=== PATIENT | female | born 1960 | race Caucasian/White ===

== ENCOUNTER 2019-06-12 19:19 | Observation (INO) ==
[2019-06-12] MEDS ORDERED: SODIUM CHLORIDE 0.9% 1000ML 1,000 ML IV ONE ×2 (19:45→21:56)
--- NOTE | 2019-06-12 19:58 | Emergency Department Note ---
History of Present Illness General Chief complaint: Shortness of Breath/Dyspnea Stated complaint: COUGH,FEVER,SOB Time Seen by Provider: 06/12/19 19:31 History of Present Illness Maximum Pain Intensity: 5 The patient is a 58-year-old female who presented to the emergency department for an evaluation of cough and fever. The patient started having cough and difficulty breathing approximately 2 weeks ago. She also complains of pain between her shoulder blades which is worsened with coughing as well as movement. The patient took Tylenol for an elevated temperature approximately 7 PM this evening. She states that she has had no nausea or vomiting. She denies having any recent travel or exposure to anyone with coronavirus. The patient has not been seen by her primary care physician for the symptoms. She denies having any lower extremity swelling or pain. The patient has had pneumonia in the past and states that her symptoms are similar. The patient denies having any sore throat or neck stiffness. Home Medications Home Medications Medication Instructions Recorded Confirmed Type biotin 1 mg capsule 1 mg PO DAILY 10/04/18 06/12/19 History multivitamin 1 tab PO QAM 10/04/18 06/12/19 History psyllium husk 0.52 gram capsule 0.52 gm PO QAM cap 10/04/18 06/12/19 History cyclobenzaprine 5 mg tablet 5 - 10 mg PO TID PRN #30 tab 10/25/18 06/12/19 Rx duloxetine 60 mg capsule,delayed 60 mg PO QAM #90 cap 03/30/19 06/12/19 Rx release lisinopril 10 mg tablet 10 mg PO QAM #90 tab 03/30/19 06/12/19 Rx lorazepam 0.5 mg tablet 0.5 mg PO HS PRN #90 tab 03/30/19 06/12/19 Rx ropinirole 4 mg tablet 4 mg PO HS #90 tab 03/30/19 06/12/19 Rx pregabalin 150 mg capsule 150 mg PO BID #180 cap 06/05/19 06/12/19 Rx tramadol 50 mg PO Q6 PRN 06/12/19 06/12/19 History albuterol sulfate 1 puffs INH 6XD PRN #8 gm 06/13/19 Rx Allergies Allergy/AdvReac Type Severity Reaction Status Date / Time NSAIDS (Non-Steroidal Allergy Mild HOT, RASH Verified 06/12/19 20:21 Anti-Inflamma Past Med/Surg History Medical History Anxiety Bilateral shoulder pain Cervical radiculopathy (Acute) Depression Fibromyalgia Hyperlipidemia (Acute) Hypertension Impaired fasting glucose (Acute) Osteoarthritis Surgical History H/O wisdom tooth extraction History of bilateral tubal ligation History of cholecystectomy History of colonoscopy History of esophagogastroduodenoscopy (EGD) History of left oophorectomy Family History Mother History of anesthesia reaction difficulty waking Family history of diabetes mellitus Myocardial infarction Kidney disease Cardiac disorder Brother Family hx colonic polyps Unknown Cardiac disorder Hypertension Denies family history of Ovarian cancer Prostate cancer Breast cancer Colorectal cancer Social History Preferred Language: Togolese Communication Ability: Effective 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 and A total of 10 systems reviewed and were otherwise negative Physical Exam Vital Signs Vital Signs - 24 hr 06/12/19 19:19 06/12/19 19:22 06/12/19 19:45 Temperature 39.6 C H Temperature Source Oral Pulse Rate 133 H Pulse Rate from SpO2 Sensor Respiratory Rate 24 25 H Respiratory Effort / Characteristics Non-Labored Spontaneous Respiratory Depth Normal Respiratory Pattern Regular Blood Pressure 166/97 H Blood Pressure Mean 120 Pulse Oximetry 91 98 91 Oxygen Delivery Method Room Air Room Air Room Air Sepsis Recent Fever Within 48 Hours Yes Sepsis Action Taken by Nursing No Action Required 06/12/19 20:30 06/12/19 20:45 06/12/19 21:00 Temperature Temperature Source Pulse Rate 108 H 112 H Pulse Rate from SpO2 Sensor 109 H 112 H Respiratory Rate 19 20 Respiratory Effort / Characteristics Respiratory Depth Respiratory Pattern Blood Pressure 167/92 H 169/86 H 169/77 H Blood Pressure Mean 103 106 111 Pulse Oximetry 92 90 92 Oxygen Delivery Method Room Air Room Air Room Air Sepsis Recent Fever Within 48 Hours Sepsis Action Taken by Nursing 06/12/19 21:15 06/12/19 21:30 06/12/19 21:45 Temperature Temperature Source Pulse Rate 110 H 107 H 114 H Pulse Rate from SpO2 Sensor 110 H 110 H 114 H Respiratory Rate 20 15 20 Respiratory Effort / Characteristics Respiratory Depth Respiratory Pattern Blood Pressure 185/84 H 171/85 H 156/92 H Blood Pressure Mean 110 136 116 Pulse Oximetry 92 90 91 Oxygen Delivery Method Room Air Room Air Room Air Sepsis Recent Fever Within 48 Hours Sepsis Action Taken by Nursing 06/12/19 22:00 Temperature Temperature Source Pulse Rate 114 H Pulse Rate from SpO2 Sensor 114 H Respiratory Rate 21 Respiratory Effort / Characteristics Respiratory Depth Respiratory Pattern Blood Pressure 170/92 H Blood Pressure Mean 130 Pulse Oximetry 93 Oxygen Delivery Method Room Air Sepsis Recent Fever Within 48 Hours Sepsis Action Taken by Nursing GENERAL: Patient is awake alert in no acute distress patient is resting comfortably and showing no signs of anxiety EYES: The conjunctivae are clear. The pupils are round and reactive. EARS, NOSE, MOUTH AND THROAT: The nose is without any evidence of any deformity. Mucous membranes are moist. Tongue is midline. NECK: The neck is nontender and supple. RESPIRATORY: Diminished breath sounds are noted throughout. There was faint wheezing in both upper lung bacon. The patient has mild conversational dyspnea. CARDIOVASCULAR: Tachycardic rate with regular rhythm was noted. There was no definite murmur. GASTROINTESTINAL: The abdomen is soft. Abdomen is nontender. MUSCULOSKELETAL/EXTREMITIES: There is no evidence of gross deformity full range of motion is noted in the hips and shoulders. SKIN: There is no obvious evidence of any rash. There are no petechiae, pallor or cyanosis noted. No calf tenderness was elicited. NEUROLOGIC: Patient is awake alert and oriented x3 strength is symmetric patellar reflexes are 2+ bilaterally Course Course 7: I discussed this case with Dr. Garcias. He is agreed to evaluate the patient in the emergency department for further management and disposition. Administered Medications Discontinued Medications Albuterol (Duoneb) 3 ml NEB NOW STA Stop: 06/12/19 21:57 Last Admin: 06/12/19 22:36 Dose: 3 ml Documented by: [id number] Albuterol (Duoneb) 3 ml NEB QIDR [facility] Stop: 07/13/19 06:59 Last Admin: 06/13/19 07:32 Dose: 3 ml Documented by: [id number] Duloxetine HCl (Cymbalta) 60 mg PO QAM [facility] Stop: 07/13/19 08:59 Last Admin: 06/13/19 08:49 Dose: 60 mg Documented by: [id number] Guaifenesin (Mucinex) 1,200 mg PO Q12 [facility] Stop: 07/13/19 08:59 Last Admin: 06/13/19 08:47 Dose: 1,200 mg Documented by: [id number] Sodium Chloride (Nss 1000ml) 1,000 mls @ 999 mls/hr IV .Q1H1M ONE Stop: 06/12/19 20:45 Last Infusion: 06/12/19 21:28 Dose: 0 mls/hr Documented by: [id number] Admin: 06/12/19 20:25 Dose: 999 mls/hr Documented by: [id number] Magnesium Sulfate/Dextrose (Magnesium Sulfate / D5w) 1 gm in 100 mls @ 100 mls/hr IV Q1H [facility] Stop: 06/12/19 23:14 Last Infusion: 06/12/19 23:15 Dose: 0 mls/hr Documented by: [id number] Admin: 06/12/19 22:35 Dose: 200 mls/hr Documented by: [id number] Infusion: 06/12/19 22:35 Dose: 200 mls/hr Documented by: [id number] Admin: 06/12/19 21:55 Dose: 100 mls/hr Documented by: [id number] Sodium Chloride (Nss 1000ml) 1,000 mls @ 999 mls/hr IV .Q1H1 ONE Stop: 06/12/19 22:56 Last Infusion: 06/13/19 00:33 Dose: 0 mls/hr Documented by: [id number] Admin: 06/12/19 22:35 Dose: 999 mls/hr Documented by: [id number] Ceftriaxone Sodium 2,000 mg/ (Dextrose) 70 mls @ 100 mls/hr IV Q24H [facility]; Protocol Stop: 06/20/19 00:59 Last Infusion: 06/13/19 02:45 Dose: 0 mls/hr Documented by: [id number] Admin: 06/13/19 01:42 Dose: 100 mls/hr Documented by: [id number] Levofloxacin/Dextrose (Levaquin/D5w) 500 mg in 100 mls @ 100 mls/hr IV Q24H [facility] Stop: 06/20/19 01:59 Last Infusion: 06/13/19 02:45 Dose: 0 mls/hr Documented by: [id number] Admin: 06/13/19 01:42 Dose: 100 mls/hr Documented by: [id number] Methylprednisolone 40 mg/ (Syringe) 0.64 mls @ 1.5 mls/min IV Q8H [facility] Stop: 07/13/19 00:59 Last Admin: 06/13/19 08:48 Dose: 1.5 mls/min Documented by: [id number] Admin: 06/13/19 01:41 Dose: 1.5 mls/min Documented by: [id number] Potassium Chloride/Sodium Chloride (Normal Saline W/20 Meq Kcl) 20 meq in 1,000 mls @ 100 mls/hr IV .Q10H [facility] Stop: 07/13/19 04:44 Last Admin: 06/13/19 04:55 Dose: 100 mls/hr Documented by: [id number] Lisinopril (Zestril) 10 mg PO QAM [facility] Stop: 07/13/19 11:14 Last Admin: 06/13/19 11:38 Dose: 10 mg Documented by: [id number] Multivitamins (Multivitamin Tab) 1 tab PO QAM [facility] Stop: 07/13/19 08:59 Last Admin: 06/13/19 08:49 Dose: 1 tab Documented by: [id number] Pregabalin (Lyrica) 150 mg PO BID [facility] Stop: 07/13/19 00:59 Last Admin: 06/13/19 08:49 Dose: 150 mg Documented by: [id number] Admin: 06/13/19 01:41 Dose: 150 mg Documented by: [id number] Psyllium Hydrophilic Mucilloid (Metamucil) 1 pkt PO QAM [facility] Stop: 07/13/19 08:59 Last Admin: 06/13/19 08:46 Dose: Not Given Documented by: [id number] Medical Decision Making Differential Diagnosis Viral syndrome, otitis, pharyngitis, pneumonia, influenza, meningitis, urinary tract infection, sepsis, bacteremia, as well as other pathologies. Medical Records Attestation: I reviewed the patient's medical records. Home Medications Current Medication List: was personally reviewed by me Laboratory Data Attestation: I reviewed the patient's lab results. Result diagrams: 06/13/19 05:10 06/13/19 05:10 Lab Results 06/12/19 06/12/19 06/12/19 Range/Units 20:25 20:25 20:26 WBC 13.55 H (4.8-10.8) K/uL RBC 4.44 (4.2-5.4) M/uL Hgb 12.0 (12.0-16.0) g/dL Hct 36.3 L (37-47) % MCV 81.8 (80-100) fL MCH 27.0 (25-34) pg MCHC 33.1 (32-36) g/dL RDW Std Deviation 44.9 (36.4-46.3) fL RDW Coeff of Stepan 15.2 H (11.5-14.5) % Plt Count 193 (130-400) K/uL MPV 9.2 (7.4-10.4) fL Immature Gran % (Auto) 0.5 % Neut % (Auto) 84.0 % Lymph % (Auto) 7.7 % Dyer % (Auto) 6.1 % Eos % (Auto) 1.6 % Baso % (Auto) 0.1 % Immature Gran # (Auto) 0.07 H (0.00-0.02) K/uL Neut # (Auto) 11.36 H (1.4-6.5) K/uL Lymph # (Auto) 1.05 L (1.2-3.4) K/uL Dyer # (Auto) 0.83 H (0.11-0.59) K/uL Eos # (Auto) 0.22 (0-0.5) K/uL Baso # (Auto) 0.02 (0-0.2) K/uL PT (9.0-12.0) Seconds INR (0.9-1.1) APTT (21.0-31.0) Seconds PTT Ratio Sodium (136-145) mmol/L Potassium (3.5-5.1) mmol/L Chloride (98-107) mmol/L Carbon Dioxide (21-32) mmol/L Anion Gap (3-11) BUN (7-18) mg/dl Creatinine (0.6-1.2) mg/dl Est Cr Clr Drug Dosing ml/min Est GFR ( Amer) Est GFR (Non-Af Amer) BUN/Creatinine Ratio (10-20) Glucose (70-99) mg/dl Lactate (0.4-2.0) mmol/L Calcium (8.5-10.1) mg/dl Magnesium (1.8-2.4) mg/dl Total Bilirubin (0.2-1) mg/dl AST (15-37) U/L ALT (12-78) U/L Alkaline Phosphatase (45-117) U/L Troponin I (0-0.045) ng/ml Total Protein (6.4-8.2) gm/dl Albumin (3.4-5.0) gm/dl Globulin (2.5-4.0) gm/dl Albumin/Globulin Ratio (0.9-2) Procalcitonin (0-0.5) ng/ml Adenovirus (PCR) Not Detected (NotDetected) B. pertussis DNA (PCR) Not Detected (NotDetected) B.parapertussis DNA PCR Not Detected (NotDetected) C. pneumoniae DNA (PCR) Not Detected (NotDetected) Coronavirus OC43 (PCR) Not Detected (NotDetected) Coronavirus HKU1 (PCR) Not Detected (NotDetected) Coronavirus 229E (PCR) Not Detected (NotDetected) Coronavirus NL63 (PCR) DETECTED A* (NotDetected) Human Metapneumovir PCR Not Detected (NotDetected) Influenza Type A (PCR) Neg for Influ A Not Detected (Neg) Influenza Type B (PCR) Neg for Influ B Not Detected (Neg) M. pneumoniae (PCR) Not Detected (NotDetected) Parainfluenza 1 (PCR) Not Detected (NotDetected) Parainfluenza 2 (PCR) Not Detected (NotDetected) Parainfluenza 3 (PCR) Not Detected (NotDetected) Parainfluenza 4 (PCR) Not Detected (NotDetected) RSV (PCR) Not Detected (NotDetected) Entero/Rhino (PCR) Not Detected (NotDetected) 06/12/19 06/12/19 06/12/19 Range/Units 20:26 20:26 20:26 WBC (4.8-10.8) K/uL RBC (4.2-5.4) M/uL Hgb (12.0-16.0) g/dL Hct (37-47) % MCV (80-100) fL MCH (25-34) pg MCHC (32-36) g/dL RDW Std Deviation (36.4-46.3) fL RDW Coeff of Stepan (11.5-14.5) % Plt Count (130-400) K/uL MPV (7.4-10.4) fL Immature Gran % (Auto) % Neut % (Auto) % Lymph % (Auto) % Dyer % (Auto) % Eos % (Auto) % Baso % (Auto) % Immature Gran # (Auto) (0.00-0.02) K/uL Neut # (Auto) (1.4-6.5) K/uL Lymph # (Auto) (1.2-3.4) K/uL Dyer # (Auto) (0.11-0.59) K/uL Eos # (Auto) (0-0.5) K/uL Baso # (Auto) (0-0.2) K/uL PT 10.3 (9.0-12.0) Seconds INR 1.0 (0.9-1.1) APTT 27.1 (21.0-31.0) Seconds PTT Ratio 1.0 Sodium 135 L (136-145) mmol/L Potassium 3.8 (3.5-5.1) mmol/L Chloride 101 (98-107) mmol/L Carbon Dioxide 27 (21-32) mmol/L Anion Gap 7.0 (3-11) BUN 10 (7-18) mg/dl Creatinine 0.95 (0.6-1.2) mg/dl Est Cr Clr Drug Dosing 68.4 ml/min Est GFR ( Amer) 76.0 Est GFR (Non-Af Amer) 65.6 BUN/Creatinine Ratio 10.6 (10-20) Glucose 106 H (70-99) mg/dl Lactate 2.2 H* (0.4-2.0) mmol/L Calcium 9.2 (8.5-10.1) mg/dl Magnesium 1.6 L (1.8-2.4) mg/dl Total Bilirubin 0.7 (0.2-1) mg/dl AST 48 H (15-37) U/L ALT 50 (12-78) U/L Alkaline Phosphatase 86 (45-117) U/L Troponin I 0.050 H* (0-0.045) ng/ml Total Protein 8.4 H (6.4-8.2) gm/dl Albumin 3.5 (3.4-5.0) gm/dl Globulin 4.9 H (2.5-4.0) gm/dl Albumin/Globulin Ratio 0.7 L (0.9-2) Procalcitonin (0-0.5) ng/ml Adenovirus (PCR) (NotDetected) B. pertussis DNA (PCR) (NotDetected) B.parapertussis DNA PCR (NotDetected) C. pneumoniae DNA (PCR) (NotDetected) Coronavirus OC43 (PCR) (NotDetected) Coronavirus HKU1 (PCR) (NotDetected) Coronavirus 229E (PCR) (NotDetected) Coronavirus NL63 (PCR) (NotDetected) Human Metapneumovir PCR (NotDetected) Influenza Type A (PCR) (Neg) Influenza Type B (PCR) (Neg) M. pneumoniae (PCR) (NotDetected) Parainfluenza 1 (PCR) (NotDetected) Parainfluenza 2 (PCR) (NotDetected) Parainfluenza 3 (PCR) (NotDetected) Parainfluenza 4 (PCR) (NotDetected) RSV (PCR) (NotDetected) Entero/Rhino (PCR) (NotDetected) 06/12/19 06/12/19 Range/Units 20:26 22:25 WBC (4.8-10.8) K/uL RBC (4.2-5.4) M/uL Hgb (12.0-16.0) g/dL Hct (37-47) % MCV (80-100) fL MCH (25-34) pg MCHC (32-36) g/dL RDW Std Deviation (36.4-46.3) fL RDW Coeff of Stepan (11.5-14.5) % Plt Count (130-400) K/uL MPV (7.4-10.4) fL Immature Gran % (Auto) % Neut % (Auto) % Lymph % (Auto) % Dyer % (Auto) % Eos % (Auto) % Baso % (Auto) % Immature Gran # (Auto) (0.00-0.02) K/uL Neut # (Auto) (1.4-6.5) K/uL Lymph # (Auto) (1.2-3.4) K/uL Dyer # (Auto) (0.11-0.59) K/uL Eos # (Auto) (0-0.5) K/uL Baso # (Auto) (0-0.2) K/uL PT (9.0-12.0) Seconds INR (0.9-1.1) APTT (21.0-31.0) Seconds PTT Ratio Sodium (136-145) mmol/L Potassium (3.5-5.1) mmol/L Chloride (98-107) mmol/L Carbon Dioxide (21-32) mmol/L Anion Gap (3-11) BUN (7-18) mg/dl Creatinine (0.6-1.2) mg/dl Est Cr Clr Drug Dosing ml/min Est GFR ( Amer) Est GFR (Non-Af Amer) BUN/Creatinine Ratio (10-20) Glucose (70-99) mg/dl Lactate 1.6 (0.4-2.0) mmol/L Calcium (8.5-10.1) mg/dl Magnesium (1.8-2.4) mg/dl Total Bilirubin (0.2-1) mg/dl AST (15-37) U/L ALT (12-78) U/L Alkaline Phosphatase (45-117) U/L Troponin I (0-0.045) ng/ml Total Protein (6.4-8.2) gm/dl Albumin (3.4-5.0) gm/dl Globulin (2.5-4.0) gm/dl Albumin/Globulin Ratio (0.9-2) Procalcitonin 0.13 (0-0.5) ng/ml Adenovirus (PCR) (NotDetected) B. pertussis DNA (PCR) (NotDetected) B.parapertussis DNA PCR (NotDetected) C. pneumoniae DNA (PCR) (NotDetected) Coronavirus OC43 (PCR) (NotDetected) Coronavirus HKU1 (PCR) (NotDetected) Coronavirus 229E (PCR) (NotDetected) Coronavirus NL63 (PCR) (NotDetected) Human Metapneumovir PCR (NotDetected) Influenza Type A (PCR) (Neg) Influenza Type B (PCR) (Neg) M. pneumoniae (PCR) (NotDetected) Parainfluenza 1 (PCR) (NotDetected) Parainfluenza 2 (PCR) (NotDetected) Parainfluenza 3 (PCR) (NotDetected) Parainfluenza 4 (PCR) (NotDetected) RSV (PCR) (NotDetected) Entero/Rhino (PCR) (NotDetected) Imaging Data Radiologist's Impression: XR chest 1V portable CLINICAL HISTORY: SEPSIS dyspnea COMPARISON STUDY: 09/21/2014 FINDINGS: The bones soft tissues and hemidiaphragms are normal. The cardiomediastinal silhouette is normal. The lungs are clear. The pulmonary vasculature is normal. IMPRESSION: Negative chest. ACT 112: Negative or not required by law. The above report was generated using voice recognition software. It may contain grammatical, syntax or spelling errors. Electronically signed by: Ryan Osborn M.D. 06/12/2019 9:22 PM Dictated: 06/12/192121 Transcribed: 06/12/192121 ECG Data Attestation: I personally reviewed and interpreted this ECG as follows: Indication: + SOB/dyspnea Rate (beats per minute): 114 Additional Comments: EKG was obtained in the emergency department. My interpretation is sinus tachycardia at 114 bpm. There was no ectopy. There is no acute ST segment abnormalities noted. This was compared to a tracing from September 21, 2014. There is an increase in the rate but otherwise no significant change noted. Blood Pressure Blood Pressure Findings: Elevated blood pressure Blood Pressure Disposition: further management by hospitalist MILTON Narrative The patient is a 58-year-old female who presented to the emergency department for an evaluation of febrile illness and cough. The patient states that she has a history of pneumonia in the past and felt that this was consistent with her previous episodes of pneumonia. The patient was treated with IV fluids as well as DuoNeb therapy. I discussed the patient's laboratory and radiographic studies with her. She was very tachycardic and had an elevated troponin. I am unsure the significance of this at this time. The patient was also found to have a low magnesium and was treated with IV magnesium in the emergency department. I discussed the patient's condition with the on-call [facility] hospitalist. They have agreed to evaluate the patient in the emergency department for further management and disposition. The patient was feeling much better on subsequent reevaluation. She was agreeable to evaluation by the hospitalist. Impression & Plan Fever, Bronchitis, Elevated troponin, Hypomagnesemia, Sinus tachycardia Discharge Plan Visit Data *Final* Discharge Date/Time: 06/12/19 23:35 Chief Complaint: Shortness of Breath/Dyspnea Stated Complaint: COUGH,FEVER,SOB ED Provider: Ben Hall Discharge Problem: Fever, Bronchitis, Elevated troponin, Hypomagnesemia, Sinus tachycardia Patient Disposition: Admitted As Inpatient Condition: Good Discharge Instructions Interventions: ED Discharge Assessment Last Done: 06/12/19 23:35 Discharge Problem: Fever Qualifiers: Fever type: unspecified Qualified Code(s): R50.9 - Fever, unspecified
[2019-06-12 20:44] LABS: Basophils # (auto) 0.02 K/uL (0-0.2); Basophils % (auto) 0.1 %; Eosinophils # (auto) 0.22 K/uL (0-0.5); Eosinophils % (auto) 1.6 %; Hematocrit (blood only) 36.3 % (37-47); Immature Granulocytes # (auto) 0.07 K/uL (0.00-0.02); Immature Granulocytes % (auto) 0.5 %; Lymphocytes # (auto) 1.05 K/uL (1.2-3.4); Lymphocytes % (auto) 7.7 %; Mean Corpuscular Hgb Conc 33.1 g/dL (32-36); Mean Corpuscular Volume 81.8 fL (80-100); Mean Platelet Volume 9.2 fL (7.4-10.4); Monocytes # (auto) 0.83 K/uL (0.11-0.59); Monocytes % (auto) 6.1 %; Neutrophils # (auto) 11.36 K/uL (1.4-6.5); Platelet Count 193 K/uL (130-400); RDW Coefficient of Variation 15.2 % (11.5-14.5); RDW Standard Deviation 44.9 fL (36.4-46.3); Red Blood Count 4.44 M/uL (4.2-5.4); White Blood Count 13.55 K/uL (4.8-10.8)
[2019-06-12 20:57] LABS: Partial Thromboplastin Time 27.1 Seconds (21.0-31.0); Prothrombin Time 10.3 Seconds (9.0-12.0)
[2019-06-12 21:01] LABS: Albumin Level 3.5 gm/dl (3.4-5.0); BUN Creatinine Ratio 10.6 (10-20); Calcium 9.2 mg/dl (8.5-10.1); Creatinine Clr Calc Pharmacy 68.4 ml/min; Est GFR (Non-African American) 65.6; Magnesium 1.6 mg/dl (1.8-2.4); Potassium 3.8 mmol/L (3.5-5.1)
[2019-06-12 21:12] LABS: Albumin Globulin Ratio 0.7 (0.9-2); Bilirubin,Total 0.7 mg/dl (0.2-1); Globulin 4.9 gm/dl (2.5-4.0); Total Protein 8.4 gm/dl (6.4-8.2); Troponin I 0.05 ng/ml (0-0.045)
[2019-06-12 21:22] LABS: Influenza A virus by PCR Neg for Influ A (Neg); Influenza B virus by PCR Neg for Influ B (Neg)
--- NOTE | 2019-06-12 21:24 | XRay Report ---
XR chest 1V portable CLINICAL HISTORY: SEPSIS dyspnea COMPARISON STUDY: 09/21/2014 FINDINGS: The bones soft tissues and hemidiaphragms are normal. The cardiomediastinal silhouette is n ormal. The lungs are clear. The pulmonary vasculature is normal. IMPRESSION: Negative chest. ACT 112: Negative or not required by law. The above report was generated using voice recognition software. It may contain grammatical, syntax or spelling errors. Electronically signed by: Ryan Osborn M.D. 06/12/2019 9:22 PM
[2019-06-12 21:40] LABS: Adenovirus PCR Not Detected (NotDetected); Coronavirus 229E PCR Not Detected (NotDetected); Coronavirus HKU1 PCR Not Detected (NotDetected)
[2019-06-12 21:41] LABS: Bordetella parapertussis PCR Not Detected (NotDetected); Bordetella pertussis PCR Not Detected (NotDetected); Chlamydia pneumoniae PCR Not Detected (NotDetected); Coronavirus NL63 PCR DETECTED (NotDetected); Coronavirus OC43PCR Not Detected (NotDetected); Human Metapneumovirus PCR Not Detected (NotDetected); Influenza A PCR Not Detected (NotDetected); Influenza B PCR Not Detected (NotDetected); Mycoplasma pneumoniae PCR Not Detected (NotDetected); Parainfluenza Virus 1 PCR Not Detected (NotDetected); Parainfluenza Virus 2 PCR Not Detected (NotDetected); Parainfluenza Virus 3 PCR Not Detected (NotDetected); Parainfluenza Virus 4 PCR Not Detected (NotDetected); Respiratory Syncytial VirusPCR Not Detected (NotDetected); Rhinovirus/Enterovirus PCR Not Detected (NotDetected)
[2019-06-12] MEDS: MAGNESIUM SULFATE / D5W 1 GM/100 ML BAG IV SCH ×2 (21:55→22:35)
[2019-06-12] MEDS ORDERED: ALBUT/IPRATROP 3MG/0.5MG NEB 3 ML VIAL NEB STA (21:56)
--- NOTE | 2019-06-12 23:46 | History & Physical Report ---
Date of Service June 12, 2019 Assessment & Plan (1) Acute respiratory failure with hypoxia: Patient extremely short of breath with ambulation of 10 feet to the restroom and back, with pulse ox dropping to the upper 80s and lower 90s. Biofire positive for coronavirus NL63. Patient appeared to develop worsening symptoms after exposure to her 22-year-old granddaughter a week or so ago. She reports increased productive cough, SOB and WICK We will treat for secondary bacterial process with ceftriaxone IV, levofloxacin IV, duo nebs, Solu-Medrol and guaifenesin. NC O2 titrate to keep pulse ox 94 to 95%. SARS-CoV-2 RNA pending, with acute COVID test to be approved by pulmonology in a.m. Admit to negative pressure room until serologies completed. D-dimer laboratory added. LDH added. Procalcitonin is negative. Lactic acid initially elevated at 2.2 with repeat normalized at 1.6. Hold lisinopril due to potential COVID infection Present on Admission?: Yes (2) Elevated troponin: Initial troponin elevated at 0.05. The patient will be admitted to telemetry for serial cardiac enzymes, serial EKG's, cardiac rhythm monitoring and a 2-D echocardiogram with Dopplers. Likely type II IN, supply demand mismatch. Present on Admission?: Yes (3) Hypomagnesemia: Replacing with 2 g of mag sulfate IV, repeat laboratories in the a.m. Present on Admission?: Yes (4) Hypertension: Hold lisinopril Present on Admission?: Yes (5) Sinus tachycardia: Secondary to hydration and hypermetabolic state due to underlying respiratory illness. Rehydrate with IV fluids. Present on Admission?: Yes (6) Fibromyalgia: Fibromyalgia/restless legs- Continue ropinirole, tramadol, pregabalin, duloxetine and cyclobenzaprine. Present on Admission?: Yes Admission and Anticipated Discharge Date Admission Date: 06/12/2019 Anticipated date of discharge: 06/14/19 History of Present Illness Chief Complaint: Patient presents to the emergency department with complaint of 2 weeks of shortness of breath, dyspnea on exertion and cough, which have worsened significantly over the past 24 hours. Primary Care Provider: Ana Lozada MD The patient is a 58-year-old female with a past medical history including impaired fasting glucose, hyperlipidemia, cervical radiculopathy, fibromyalgia, hypertension, restless leg syndrome and osteoarthritis. She presents to the emergency department with symptoms as noted above. She reports that she was exposed to her 22-year-old granddaughter over a week ago, who had a respiratory infection that involved loss of smell, however, her granddaughter has since walter darryn. She otherwise has not had any sick exposures, and denies any recent travels. She is unsure if her granddaughter had traveled recently, and the granddaughter is not undergone COVID testing. The patient also complains of significant bilateral shoulder and posterior neck pain over the past 24 hours, but denies any headache or photophobia or focal weakness numbness or tingling in arms or legs. Allergies Allergy/AdvReac Type Severity Reaction Status Date / Time NSAIDS (Non-Steroidal Allergy Mild HOT, RASH Verified 06/12/19 20:21 Anti-Inflamma Home Medications Home Medications Medication Instructions Recorded Confirmed Type biotin 1 mg capsule 1 mg PO DAILY 10/04/18 06/12/19 History multivitamin 1 tab PO QAM 10/04/18 06/12/19 History psyllium husk 0.52 gram capsule 0.52 gm PO QAM cap 10/04/18 06/12/19 History cyclobenzaprine 5 mg tablet 5 - 10 mg PO TID PRN #30 tab 10/25/18 06/12/19 Rx duloxetine 60 mg capsule,delayed 60 mg PO QAM #90 cap 03/30/19 06/12/19 Rx release lisinopril 10 mg tablet 10 mg PO QAM #90 tab 03/30/19 06/12/19 Rx lorazepam 0.5 mg tablet 0.5 mg PO HS PRN #90 tab 03/30/19 06/12/19 Rx ropinirole 4 mg tablet 4 mg PO HS #90 tab 03/30/19 06/12/19 Rx pregabalin 150 mg capsule 150 mg PO BID #180 cap 06/05/19 06/12/19 Rx tramadol 50 mg PO Q6 PRN 06/12/19 06/12/19 History Past Med/Surg History Medical History Anxiety Bilateral shoulder pain Cervical radiculopathy (Acute) Depression Fibromyalgia Hyperlipidemia (Acute) Hypertension Impaired fasting glucose (Acute) Osteoarthritis Surgical History H/O wisdom tooth extraction History of bilateral tubal ligation History of cholecystectomy History of colonoscopy History of esophagogastroduodenoscopy (EGD) History of left oophorectomy Family History Mother History of anesthesia reaction difficulty waking Family history of diabetes mellitus Myocardial infarction Kidney disease Cardiac disorder Brother Family hx colonic polyps Unknown Cardiac disorder Hypertension Denies family history of Ovarian cancer Prostate cancer Breast cancer Colorectal cancer Social History Preferred Language: Burmese Communication Ability: Effective Residential Specialist Required: No Beliefs That Will Affect Care: None Current Living Situation: Family Current Living Situation Comment: Lives with granddaughter Other Information That Helps Us Care for You: No Feels Safe at Home: Yes Safety Concerns: Feels Safe At This Time Smoking Status: Never smoker Do You Dip or Chew Tobacco: No ; Second Hand Exposure: No ; Tobacco Cessation Education Requested by Patient: No Hx Alcohol Use: No Hx Substance Use: No Review of Systems Review of Systems: The patient denies chest pain, palpitations, lower extremity swelling, sore throat, fevers, chills, sweats, nausea, vomiting, diarrhea , constipation, abdominal pain, pelvic pain, blood in urine or stool, dysuria, urinary frequency or urgency, lightheadedness, dizziness, headache, memory loss, loss of consciousness, rash, abnormal bruising or bleeding, imbalance, focal weakness, numbness or tingling in arms or legs, generalized arthralgias or myalgias, back or neck pain, or night sweats. The review of systems is otherwise negative other than for that already noted above, and at least 10 systems have been reviewed. Physical Exam Physical Exam: The patient is awake, alert and oriented 3, well developed and well nourished, normocephalic and atraumatic, lying in bed and in no acute distress. HEENT--PERRL, EOMI, mucous membranes and oropharynx dry. Neck--supple. No JVD. No bruits. Thyroid normal, trachea midline, no adenopathy. Heart--normal S1 and S2. No murmurs, rubs or gallops. Lungs--overall clear bilaterally but diminished. Mild to moderate respiratory distress, with accessory muscle use as she has just returned from a walk to the bathroom Abdomen--normal bowel sounds and soft. Nontender. Nondistended, no hernias or masses, no organomegaly. Extremities--no cyanosis or clubbing. No edema. Dermatologic--normal skin turgor, normal color, no abnormal lymph nodes, no rash. Neurologic--cranial nerves II through XII grossly intact. Rheumatologic--normal range of motion. Psychiatric--normal affect. Results & Data Results & Data ([facility]) Vital Signs (Past 12 Hours) Vital Signs Temp Pulse Pulse Resp BP BP Pulse Ox 06/12/19 23:12 99.7 F H 06/12/19 23:10 112 H 22 152/76 H 98 06/12/19 22:00 114 H 21 170/92 H 93 06/12/19 21:45 114 H 20 156/92 H 91 06/12/19 21:30 107 H 15 171/85 H 90 06/12/19 21:15 110 H 20 185/84 H 92 06/12/19 21:00 169/77 H 92 06/12/19 20:45 112 H 20 169/86 H 90 06/12/19 20:30 108 H 19 167/92 H 92 06/12/19 19:45 25 H 91 06/12/19 19:22 103.3 F H 133 H 24 166/97 H 98 06/12/19 19:19 91 Laboratory Results Laboratory Results WBC 13.55 K/uL (4.8-10.8) H 06/12/19 20: RBC 4.44 M/uL (4.2-5.4) 06/12/19 20:26 Hgb 12.0 g/dL (12.0-16.0) 06/12/19 20: Hct 36.3 % (37-47) L 06/12/19 20: MCV 81.8 fL (80-100) 06/12/19 20: MCH 27.0 pg (25-34) 06/12/19 20: MCHC 33.1 g/dL (32-36) 06/12/19 20: RDW Std Deviation 44.9 fL (36.4-46.3) 06/12/19 20: RDW Coeff of Stepan 15.2 % (11.5-14.5) H 06/12/19 20: Plt Count 193 K/uL (130-400) 06/12/19: MPV 9.2 fL (7.4-10.4) 06/12/19 20: Immature Gran % (Auto) 0.5 % 06/12/19 20: Neut % (Auto) 84.0 % 06/12/19: Lymph % (Auto) 7.7 % 06/12/19: [place] % (Auto) 6.1 % 06/12/19: Eos % (Auto) 1.6 % 06/12/19: Baso % (Auto) 0.1 % 06/12/19: Immature Gran # (Auto) 0.07 K/uL (0.00-0.02) H 06/12/19 20: Neut # (Auto) 11.36 K/uL (1.4-6.5) H 06/12/19 20: Lymph # (Auto) 1.05 K/uL (1.2-3.4) L 06/12/19 20: [place] # (Auto) 0.83 K/uL (0.11-0.59) H 06/12/19 20: Eos # (Auto) 0.22 K/uL (0-0.5) 06/12/19 20: Baso # (Auto) 0.02 K/uL (0-0.2) 06/12/19 20: PT 10.3 Seconds (9.0-12.0) 06/12/19: INR 1.0 (0.9-1.1) 06/12/19: APTT 27.1 Seconds (21.0-31.0) 06/12/19: PTT Ratio 1.0 06/12/19 20: Sodium 135 mmol/L (136-145) L 06/12/19 20: Potassium 3.8 mmol/L (3.5-5.1) 06/12/19 20: Chloride 101 mmol/L (98-107) 06/12/19 20: Carbon Dioxide 27 mmol/L (21-32) 06/12/19 20: Anion Gap 7.0 (3-11) 06/12/19 20: BUN 10 mg/dl (7-18) 06/12/19: Creatinine 0.95 mg/dl (0.6-1.2) 06/12/19 20: Est Cr Clr Drug Dosing 68.4 ml/min 06/12/19 20: Est GFR ( Amer) 76.0 06/12/19 20: Est GFR (Non-Af Amer) 65.6 06/12/19 20: BUN/Creatinine Ratio 10.6 (10-20) 06/12/19 20: Glucose 106 mg/dl (70-99) H 06/12/19 20: Lactate 1.6 mmol/L (0.4-2.0) 06/12/19 22: Calcium 9.2 mg/dl (8.5-10.1) 06/12/19: Magnesium 1.6 mg/dl (1.8-2.4) L 06/12/19: Total Bilirubin 0.7 mg/dl (0.2-1) 06/12/19 20: AST 48 U/L (15-37) H 06/12/19 20: ALT 50 U/L (12-78) 06/12/19: Alkaline Phosphatase 86 U/L (45-117) 06/12/19 20: Troponin I 0.041 ng/ml (0-0.045) 06/13/19 00:24 Total Protein 8.4 gm/dl (6.4-8.2) H 06/12/19 20: Albumin 3.5 gm/dl (3.4-5.0) 06/12/19 20: Globulin 4.9 gm/dl (2.5-4.0) H 06/12/19 20: Albumin/Globulin Ratio 0.7 (0.9-2) L 06/12/19: Procalcitonin 0.13 ng/ml (0-0.5) 06/12/19 20: Adenovirus (PCR) Not Detected (NotDetected) 06/12/19 20: B. pertussis DNA (PCR) Not Detected (NotDetected) 06/12/19 20:25 B.parapertussis DNA PCR Not Detected (NotDetected) 06/12/19 20:25 C. pneumoniae DNA (PCR) Not Detected (NotDetected) 06/12/19 20:25 Coronavirus OC43 (PCR) Not Detected (NotDetected) 06/12/19 20:25 Coronavirus HKU1 (PCR) Not Detected (NotDetected) 06/12/19 20:25 Coronavirus 229E (PCR) Not Detected (NotDetected) 06/12/19 20:25 Coronavirus NL63 (PCR) DETECTED (NotDetected) A* 06/12/19 20:25 Hepatitis C Ab Screen Neg (Neg) 06/13/19 04:44 Human Metapneumovir PCR Not Detected (NotDetected) 06/12/19 20:25 Influenza Type A (PCR) Neg for Influ A (Neg) 06/12/19 20:25 Influenza Type A (PCR) Not Detected (NotDetected) 06/12/19 20:25 Influenza Type B (PCR) Neg for Influ B (Neg) 06/12/19 20:25 Influenza Type B (PCR) Not Detected (NotDetected) 06/12/19 20:25 M. pneumoniae (PCR) Not Detected (NotDetected) 06/12/19 20:25 Parainfluenza 1 (PCR) Not Detected (NotDetected) 06/12/19 20:25 Parainfluenza 2 (PCR) Not Detected (NotDetected) 06/12/19 20:25 Parainfluenza 3 (PCR) Not Detected (NotDetected) 06/12/19 20:25 Parainfluenza 4 (PCR) Not Detected (NotDetected) 06/12/19 20:25 RSV (PCR) Not Detected (NotDetected) 06/12/19 20:25 Entero/Rhino (PCR) Not Detected (NotDetected) 06/12/19 20:25 Diagnostic Findings [facility], [place] [phone] XRay Report Patient: ISAAC DUNHAM LAdmit Date: 06/12/19 MR#: [id number] [facility] Acct ID:[id number]: Date: 1960City Zip: [place] [address] Age: 58Location: ED Sex: F Room/Bed: Att Phy:Diagnosis: COUGH,FEVER,SOB Yue Phy: Ana Lozada, MDService Date: 06/12/19 [facility] Phy:Interpreting Phy: Ryan Osborn MD Admit Phy: Ordering Phy: Ben Hall DO cc: ~ XR chest 1V portable CLINICAL HISTORY: SEPSIS dyspnea COMPARISON STUDY: 09/21/2014 FINDINGS: The bones soft tissues and hemidiaphragms are normal. The cardiomediastinal silhouette is normal. The lungs are clear. The pulmonary vasculature is normal. IMPRESSION: Negative chest. ACT 112: Negative or not required by law. The above report was generated using voice recognition software. It may contain grammatical, syntax or spelling errors. Electronically signed by: Ryan Osborn M.D. 06/12/2019 9:22 PM Dictated: 06/12/192121 Transcribed: 06/12/192121 Code Status & VTE Plan Code Status Full code VTE Prophylaxis Plan VTE Prophylaxis will be ordered: Yes PG Care Time/CCT Total # of Minutes Spent Total Time Spent with Patient: Total time spent is greater than 50% in coordination of care (as documented) at patient's floor/unit and/or counseling patient: Coding Level of Care Code 30679 Initial Inpt Care Lvl 3 Diagnoses Acute respiratory failure with hypoxia J96.01 Elevated troponin R79.89 Hypomagnesemia E83.42 Hypertension I10 Sinus tachycardia R00.0 Fibromyalgia M79.7
[2019-06-13] MEDS ORDERED: MAGNESIUM HYDROXIDE SUSP 30 ML UDC PO PRN (00:24)
[2019-06-13] MEDS ORDERED: LORazepam 0.5 MG TAB PO PRN (00:24)
[2019-06-13] MEDS ORDERED: ALUMINUM/MAGNESIUM SUSP 30 ML UDC PO PRN (00:24)
[2019-06-13] MEDS ORDERED: TRAMADOL HCL 50 MG TABLET PO PRN (00:24)
[2019-06-13] MEDS ORDERED: ACETAMINOPHEN 325 MG TAB PO PRN (00:24)
[2019-06-13] MEDS ORDERED: CYCLOBENZAPRINE HCL 5 MG TAB PO PRN (00:24)
[2019-06-13] MEDS ORDERED: ONDANSETRON INJ 2 MG/ML 2 ML VIAL IV PRN (00:24)
[2019-06-13] MEDS ORDERED: cefTRIAXone SODIUM 2,000 MG in DEXTROSE 5% 50 ML IV SCH (01:00)
[2019-06-13] MEDS: methylPREDNISolone 40 MG in SYRINGE 0 ML IV SCH ×2 (01:41→08:48)
[2019-06-13] MEDS: PREGABALIN 150 MG CAP PO SCH ×2 (01:41→08:49)
[2019-06-13] MEDS ORDERED: methylPREDNISolone 40 MG in SYRINGE 0 ML IV SCH (02:00)
[2019-06-13] MEDS ORDERED: LEVOFLOXACIN/D5W 500 MG/100 ML BAG IV SCH (02:00)
[2019-06-13] MEDS ORDERED: NSS + 20MEQ KCL 20 MEQ/1,000 ML BAG IV SCH (04:45)
[2019-06-13 05:00] VITALS: TEMP 98.2
[2019-06-13 05:54] LABS: Basophils # (auto) 0.01 K/uL (0-0.2); Basophils % (auto) 0.1 %; Eosinophils # (auto) 0.05 K/uL (0-0.5); Eosinophils % (auto) 0.5 %; Hematocrit (blood only) 35.1 % (37-47); Hemoglobin 11.2 g/dL (12.0-16.0); Immature Granulocytes # (auto) 0.03 K/uL (0.00-0.02); Immature Granulocytes % (auto) 0.3 %; Lymphocytes # (auto) 0.75 K/uL (1.2-3.4); Lymphocytes % (auto) 7.1 %; Mean Corpuscular Hemoglobin 26.5 pg (25-34); Mean Corpuscular Hgb Conc 31.9 g/dL (32-36); Mean Corpuscular Volume 83.2 fL (80-100); Monocytes # (auto) 0.25 K/uL (0.11-0.59); Monocytes % (auto) 2.4 %; Neutrophils # (auto) 9.41 K/uL (1.4-6.5); Neutrophils % (auto) 89.6 %; Platelet Count 193 K/uL (130-400); RDW Coefficient of Variation 15.4 % (11.5-14.5); RDW Standard Deviation 46.7 fL (36.4-46.3); Red Blood Count 4.22 M/uL (4.2-5.4)
[2019-06-13 06:20] LABS: D Dimer 410 ug/L FEU (0-500); Partial Thromboplastin Time 29.2 Seconds (21.0-31.0); Prothrombin Time 10.7 Seconds (9.0-12.0)
[2019-06-13 06:24] LABS: Albumin Level 3.2 gm/dl (3.4-5.0); BUN Creatinine Ratio 11.2 (10-20); Calcium 8.7 mg/dl (8.5-10.1); Creatinine Clr Calc Pharmacy 86.4 ml/min; Est GFR (African American) 101.1; Est GFR (Non-African American) 87.2; Magnesium 2.7 mg/dl (1.8-2.4); Potassium 4.7 mmol/L (3.5-5.1)
[2019-06-13 06:29] LABS: Albumin Globulin Ratio 0.7 (0.9-2); Bilirubin,Total 0.4 mg/dl (0.2-1); Globulin 4.4 gm/dl (2.5-4.0); Total Protein 7.6 gm/dl (6.4-8.2)
[2019-06-13] MEDS ORDERED: ALBUT/IPRATROP 3MG/0.5MG NEB 3 ML VIAL NEB SCH (07:00)
[2019-06-13] MEDS ORDERED: lisinopriL 10 MG TAB PO SCH ×2 (09:00→11:15)
[2019-06-13] MEDS ORDERED: guaiFENesin 600 MG TABCR PO SCH (09:00)
[2019-06-13] MEDS ORDERED: MULTIVITAMIN TAB PO SCH (09:00)
[2019-06-13] MEDS ORDERED: PSYLLIUM 58.6% POWDER PACKET PO SCH (09:00)
[2019-06-13] MEDS ORDERED: NON-FORMULARY MEDICATION (Biotin 1 MG) PO SCH (09:00)
[2019-06-13] MEDS ORDERED: DULOXETINE HCL 60 MG CAP PO SCH (09:00)
[2019-06-13] MEDS ORDERED: ALBUT/IPRATROP 3MG/0.5MG NEB 3 ML VIAL NEB PRN (09:21)
[2019-06-13 10:43] VITALS: BP 174/62; PULSE 94; O2SAT 97
--- NOTE | 2019-06-13 11:30 | Discharge Summary ---
Date of Service June 13, 2019 Admission HPI Per Admitting Provider The patient is a 58-year-old female with a past medical history including impaired fasting glucose, hyperlipidemia, cervical radiculopathy, fibromyalgia, hypertension, restless leg syndrome and osteoarthritis. She presents to the emergency department with symptoms as noted above. She reports that she was exposed to her 22-year-old granddaughter over a week ago, who had a respiratory infection that involved loss of smell, however, her granddaughter has since recovered. She otherwise has not had any sick exposures, and denies any recent travels. She is unsure if her granddaughter had traveled recently, and the granddaughter is not undergone COVID testing. The patient also complains of significant bilateral shoulder and posterior neck pain over the past 24 hours, but denies any headache or photophobia or focal weakness numbness or tingling in arms or legs. Admission Exam Per Admitting Provider The patient is awake, alert and oriented 3, well developed and well nourished, normocephalic and atraumatic, lying in bed and in no acute distress. HEENT--PERRL, EOMI, mucous membranes and oropharynx dry. Neck--supple. No JVD. No bruits. Thyroid normal, trachea midline, no adenopathy. Heart--normal S1 and S2. No murmurs, rubs or gallops. Lungs--overall clear bilaterally but diminished. Mild to moderate respiratory distress, with accessory muscle use as she has just returned from a walk to the bathroom Abdomen--normal bowel sounds and soft. Nontender. Nondistended, no hernias or masses, no organomegaly. Extremities--no cyanosis or clubbing. No edema. Dermatologic--normal skin turgor, normal color, no abnormal lymph nodes, no rash. Neurologic--cranial nerves II through XII grossly intact. Rheumatologic--normal range of motion. Psychiatric--normal affect. Principal Diagnosis 1. Acute viral bronchitis, likely secondary to [id number] coronavirus 2. Possible diagnosis of asthma 3. Hypertension by history 4. Hyperlipidemia by history 5. Acute hypoxic presentation, since resolved Discharge Data Allergies Allergy/AdvReac Type Severity Reaction Status Date / Time NSAIDS (Non-Steroidal Allergy Mild HOT, RASH Verified 06/12/19 20:21 Anti-Inflamma Consultations 06/12/19 21:56 ED Decision to Admit Stat 06/13/19 00:24 Consult Cardiology Routine Consult Case Management - Discharge Planning Routine Hospital Course (1) Acute respiratory failure with hypoxia: Patient was initially admitted with shortness of breath and, more significantly, dyspnea on exertion. She was found to be mildly hypoxic with a pulse ox of only 90%. She was started on empiric antibiotics with Rocephin and Levaquin. Patient had bio fire testing that was positive for coronavirus NL 63. COVID-19 testing was also obtained. Patient was placed in airborne isolation. By the next morning, patient was feeling much better. Her O2 sats were improved and she is 97% on room air. She describes some loose cough. She has been afebrile. Her troponin was minimally elevated at 0.05 but repeat testing was nondetectable, which is more concerning for cardiac strain rather than new non- STEMI. I did speak to JERMAINE Mantilla for the pulmonology service. As the patient likely has viral bronchitis, we will discontinue the antibiotics and discharge the patient. We will send the COVID-19 is initially planned. Patient should self quarantine until testing comes back her 14 days is passed. As she does have worsening symptoms, she should consider returning to the emergency room. There is also suggested that the patient follow with outpatient pulmonology for full pulmonary function studies when she is improved. I did discharge patient with an albuterol metered-dose inhaler to use if she starts to get more shortness of breath or wheezes. (2) Elevated troponin: Initial troponin elevated at 0.05. Repeat testing is nondetectable. I did speak to the heart station, we will defer further inpatient testing secondary to COVID-19. Patient is denying any symptoms of chest pain, palpitations, diaphoresis, or other concerning issues for possible non-STEMI or ACS. (3) Hypomagnesemia: Replacing with 2 g of mag sulfate IV, repeat laboratories in the a.m. (4) Hypertension: Lisinopril held initially, okay to restart on discharge. (5) Sinus tachycardia: Secondary to hydration and hypermetabolic state due to underlying respiratory illness. Rehydrate with IV fluids. (6) Fibromyalgia: Fibromyalgia/restless legs- Continue ropinirole, tramadol, pregabalin, duloxetine and cyclobenzaprine. Total Time Total Time Spent Total Time Spent (In Minutes): Perforation discharge in excess of 30 minutes Discharge Plan Discharge Items Patient Disposition: Home - Self-Care Reason For Visit: NSTEMI, ACUTE RESP FAILURE WITH HYPOXIA Discharge Diagnosis: 1. Acute viral bronchitis, bio fire positive for [id number] coronavirus 2. Possible history of asthma 3. Acute respiratory failure with hypoxia, since resolved 4. Hyperlipidemia by history 5. Hypertension by history Condition on Discharge: Good Activity: As commented below Activity Comment: Should remain quarantined for the next 14 days or until COVID- 19 is confirmed to be negative Bathing: No limitations Exercise/Sports: Rest today Weightbearing: Full weightbearing Non-emergency contact: Primary Care Provider Call non-emergency contact if: your symptoms worsen and your temperature is above 101 Follow-up/Referrals: Ana Lozada MD [Primary Care Provider] - Manuel Yuan MD [Physician] - (Call office to schedule an outpatient consultation, consider pulmonary function studies to confirm diagnosis of asthma) Diet: Heart Healthy Addtl Attending Provider Instructions: As noted above, self quarantine for 14 days until COVID-19 testing returns is negative Pending Studies at Discharge: Yes Studies:: COVID-19 Stand-Alone Forms: My [employer], Smoking Cessation Medications and DC Order Prescriptions: New albuterol sulfate 90 mcg/actuation HFA aerosol inhaler 1 puffs INH 6XD PRN (Reason: shortness of breath or wheezing) Qty: 8 RF: 1 Continued cyclobenzaprine 5 mg tablet 5 - 10 mg PO TID PRN (Reason: muscle spasms) Qty: 30 RF: 5 duloxetine 60 mg capsule,delayed release(DR/EC) 60 mg PO QAM Qty: 90 RF: 3 lisinopril 10 mg tablet 10 mg PO QAM Qty: 90 RF: 3 lorazepam 0.5 mg tablet 0.5 mg PO HS PRN (Reason: Anxiety) Qty: 90 RF: 0 ropinirole 4 mg tablet 4 mg PO HS Qty: 90 RF: 3 pregabalin 150 mg capsule 150 mg PO BID Qty: 180 RF: 0 tramadol 50 mg tablet 50 mg PO Q6 PRN (Reason: Pain) RF: 0 psyllium husk [Fiber-Caps (psyllium husk)] 0.52 gram capsule 0.52 gm PO QAM RF: 0 multivitamin tablet 1 tab PO QAM RF: 0 biotin 1 mg capsule 1 mg PO DAILY RF: 0 Discharge Orders: Discharge Order (Routine); Ordered 06/13/19 Ordered By: Jenaro Pineda Admission Data Admit Date/Time: 06/12/19 22:49 Attending Provider: Jenaro Pineda Admit Provider: Bret Rico Primary Care Provider: Ana Lozada Other Providers: Bret Rico ; Neville Shepard Coding Level of Care Code D/C Day Management >30 mins Diagnoses Acute respiratory failure with hypoxia J96.01 Elevated troponin R79.89 Hypomagnesemia E83.42 Hypertension I10 Sinus tachycardia R00.0 Fibromyalgia M79.7
--- NOTE | 2019-06-13 15:56 | Electrocardiogram Report ---
Test Reason : Blood Pressure : / mmHG Vent. Rate : 114 BPM Atrial Rate : 114 BPM P-R Int : 122 ms QRS Dur : 082 ms QT Int : 328 ms P-R-T Axes : 030 006 044 degrees QTc Int : 452 ms Sinus tachycardia Possible Left atrial enlargement Borderline ECG When compared with ECG of 21-SEP-2014 15:38, Vent. rate has increased BY 42 BPM QRS duration has decreased Confirmed by Neville Shepard ([id number]) on 06/13/2019 3:56:05 PM Referred By: REFERRED SELF Confirmed By:Neville Shepard
--- NOTE | 2019-06-13 16:06 | Electrocardiogram Report ---
Test Reason : Blood Pressure : / mmHG Vent. Rate : 089 BPM Atrial Rate : 089 BPM P-R Int : 138 ms QRS Dur : 094 ms QT Int : 394 ms P-R-T Axes : 046 003 046 degrees QTc Int : 479 ms Normal sinus rhythm Normal ECG When compared with ECG of 12-JUN-2019 20:06, No significant change was found Confirmed by Neville Shepard ([id number]) on 06/13/2019 4:05:33 PM Referred By: REFERRED SELF Confirmed By:Neville Shepard
[2019-06-13] MEDS ORDERED: ROPINIROLE HCL 1 MG TABLET PO SCH (21:00)
[2019-06-14 03:25] LABS: SARS CoV2 RNA (COVID-19) DETECTED (NOT DETECTED)
== END 2019-06-13 13:19 | disposition home or self-care (01) ==
LOC: ED 19:19 → INTOOBSV 22:49 → 2S 22:49 → SUATTDRO 22:49 → 2S 23:35

== ENCOUNTER 2024-12-08 11:44 | Observation (INO) ==
[2024-12-08] MEDS: diphenhydrAMINE 50 MG/ML VIAL IV STA (13:06)
[2024-12-08] MEDS: METOCLOPRAMIDE HCL INJ 5 MG/ML 2 ML VIAL IV STA (13:06)
[2024-12-08 13:17] LABS: Hematocrit (blood only) 41.4 % (37.0-47.0); Hemoglobin 13.2 g/dl (12.0-16.0); Immature Granulocytes # (auto) 0.01 K/uL (0.01-0.20); Immature Granulocytes % (auto) 0.2 %; Mean Corpuscular Hemoglobin 26.3 pg (25.0-34.0); Mean Corpuscular Volume 82.6 fL (80.0-100.0); Platelet Count 187 K/uL (130-400); RDW Standard Deviation 43.0 fL (36.4-46.3); Red Blood Count 5.01 M/uL (4.20-5.40); White Blood Count 5.63 K/ul (4.8-10.8)
--- NOTE | 2024-12-08 13:21 | Emergency Department Note ---
Impression & Plan 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, Vision abnormalities ED Provider Note NAME: ISAAC DUNHAM AGE: 64 SEX: F : 1960 ARRIVES VIA: Walk-In INFORMANT: Patient, ED PROVIDER(S): Ernestine Christianson MD CHIEF COMPLAINT: Right vision change, left headache HPI: This is a 64-year-old female present for right sided vision change as well as left-sided headache. Patient notes that for the past 2 mornings she has had right-sided eye changes. She notes that her vision feels a "kaleidoscope "vision. She notes a central area that appears somewhat blurry with peripheral floaters. This resolved yesterday morning as well as this morning. She noted left-sided headache today as well. The last roughly 1 hour. Headache is still somewhat persistent. She reports no trouble with moving, facial droop, strokelike symptoms. This never happened before. She has a baseline eye deficit on the left side which she has seen ophthalmology for multiple times. ROS: See above HPI for pertinent positives & negatives. A total of 10 systems reviewed and were otherwise negative. PAST MEDICAL HISTORY: See Below PAST SURGICAL HISTORY: See Below FAMILY HISTORY: See Below SOCIAL HISTORY: See Below HOME MEDICATIONS: See Below ALLERGIES: See Below VITALS: See Below PHYSICAL EXAMINATION: General: resting comfortably in no acute distress Head: Normocephalic and atraumatic Eyes: Normal inspection, extraocular muscles intact Ear, nose, throat: Normal external exam Neck: Normal range of motion Respiratory: lungs clear to auscultation bilaterally Cardiovascular: Regular rate/rhythm, no murmur GI: soft, nontender, no guarding or rebound Extremities: nontender, moves all extremities, Neuro: The patient awake and alert, appropriately conversive, no focal deficits, symmetric , NIH 0, no dysmetria, no motor drift Skin: Warm, dry, and intact MEDICAL DECISION MAKING: This is a 64-year-old female present for right sided vision change/left-sided headache. Will do screening CT imaging. No current neurologic deficits however. Low concern for CRAO as patient had no complete vision loss. Consider migraine. Low concern for acute retinal/vitreous detachment. 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 - Bloodwork is reviewed showing no significant leukocytosis, anemia, electrolyte or creatinine abnormality - CT imaging currently negative. Does show signs of severe stenosis of the left posterior cerebral artery - Discussed with patient about options occluding admission versus discharge. Patient is have improved after migraine cocktail in addition. - After discussion, patient would prefer admission for further workup/stroke rule out. - Discussed with Dr. Wise for consultation, please see his note for further details Differential diagnosis: Migraine, stroke, CRAO, vitreous hemorrhage, retinal detachment Diagnostics interpreted by me: ECG: None Cardiac Monitoring: An order was placed for continuous cardiac monitoring. The monitor shows a rate of 68 with sinus rhythm. Past Med/Surg History Problem List (Updated 12/08/24 @ 17:26 by Ernestine Christianson MD) Vision abnormalities (Acute) 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 (Acute) Type II diabetes mellitus with peripheral angiopathy (Chronic) Lumbar radiculopathy Anxiety (Chronic) Hypertension (Chronic) Hyperlipidemia (Chronic) Cervical radiculopathy (Chronic) Osteoarthritis (Chronic) Fibromyalgia (Chronic) Medical History Trochanteric bursitis of right hip Surgical History S/P excision of lipoma Excision of Left Calf Lipoma, 3 cm, subcutaneous - Mamadou Seymour DO, FACS 01-15-2021 History of left oophorectomy History of bilateral tubal ligation History of cholecystectomy History of colonoscopy History of esophagogastroduodenoscopy (EGD) H/O wisdom tooth extraction Family History Mother History of anesthesia reaction difficulty waking Family history of diabetes mellitus Myocardial infarction Kidney disease Cardiac disorder Brother Family hx colonic polyps Unknown Cardiac disorder Hypertension Denies family history of Ovarian cancer Prostate cancer Breast cancer Colorectal cancer Social History (Updated 12/08/24 @ 17:05 by Oskar Wise DO) Smoking Status: Never smoker Second Hand Exposure: No; Do You Dip or Chew Tobacco: No; Hx Alcohol Use: Yes Alcohol type: beer, wine and hard liquor Hx Substance Use: No Preferred Language: [place]araguan Communication Ability: Effective Director Of Sports Medicine Required: No Beliefs That Will Affect Care: None marital status: Current Living Situation: Alone and Family current occupational status: disabled How many Children do You have: 2 How many Children do You have Comment: Does not speak with either child Feels Safe at Home: Yes Childhood Exposure to Second-Hand Smoke: Yes Diet: regular caffeine: Yes during the past year weight has: remained stable Dental Care, Regularly: No Physical Activity Frequency: Daily Seatbelt Use: always Sunscreen Use: No Assistive Devices: Glasses Allergies Allergies Allergy/AdvReac Type Severity Reaction Status Date / Time NSAIDS (Non-Steroidal Allergy Mild HOT, RASH, Verified 11/16/24 08:26 Anti-Inflamma swelling Home Meds Home Medications Medication Instructions Recorded Confirmed acetaminophen 650 mg 650 mg PO Q12H PRN Pain 09/20/19 12/08/24 tablet,extended release (Arthritis Pain Reliever) Previous Rx's Medication Instructions Recorded pen needle, diabetic 33 gauge x #300 ea 07/01/2303/04" (Comfort EZ Pen Mcdonald) cyclobenzaprine 5 mg tablet 5 - 10 mg (1 - 2 x 5 mg) PO TID 01/26/24 PRN muscle spasms #30 tabs duloxetine 60 mg capsule,delayed 60 mg PO DAILY #90 caps 02/25/24 release lorazepam 0.5 mg tablet 0.5 mg PO HS PRN Anxiety #90 tabs 04/25/24 meclizine 12.5 mg tablet 12.5 mg PO TID PRN dizziness #30 04/25/24 tabs albuterol sulfate 90 mcg/actuation 1 inh inhalation 6XD PRN shortness 06/21/24 aerosol inhaler of breath or wheezing #8 grams rosuvastatin 10 mg tablet 10 mg PO DAILY #90 tabs 06/21/24 lisinopril 10 mg tablet 10 mg PO DAILY #100 tabs 07/06/24 metformin 500 mg tablet,extended 500 mg PO DAILY #90 tabs 08/08/24 release 24 hr ropinirole 4 mg tablet 4 mg PO HS #90 tabs 08/08/24 pregabalin 150 mg capsule 150 mg PO BID #180 caps 08/14/24 tirzepatide 7.5 mg/0.5 mL 7.5 mg (0.5 mL) subcut .COMPLEX #2 09/25/24 subcutaneous pen injector mL (Lulu) Results & Data (ED) Vital Signs Vital Signs - 24 hr 12/08/24 11:47 12/08/24 12:23 12/08/24 13:54 Temperature 36.6 C Temperature Source Temporal Artery Scan Pulse Rate 84 67 62 Pulse Rate from SpO2 Sensor 61 Respiratory Rate 20 20 Respiratory Effort / Characteristics Non-Labored Spontaneous Respiratory Depth Normal Respiratory Pattern Regular Blood Pressure 151/99 H 154/82 H Blood Pressure Mean 116 106 Blood Pressure Position Lying Pulse Oximetry 100 95 Oxygen Delivery Method Room Air Sepsis Recent Fever Within 48 Hours No Sepsis New/Unexplained Change in Mental Status No Sepsis Action Taken by Nursing No Action Required 12/08/24 15:00 12/08/24 15:42 12/08/24 16:27 Temperature Temperature Source Pulse Rate 89 112 H 68 Pulse Rate from SpO2 Sensor 64 65 Respiratory Rate 18 16 Respiratory Effort / Characteristics Respiratory Depth Respiratory Pattern Blood Pressure 136/89 Blood Pressure Mean 104 Blood Pressure Position Pulse Oximetry 98 96 Oxygen Delivery Method Sepsis Recent Fever Within 48 Hours Sepsis New/Unexplained Change in Mental Status Sepsis Action Taken by Nursing Laboratory Data 12/08/24 12:05 12/08/24 12:05 Lab Results 12/08/24 Range/Units 12:05 WBC 5.63 (4.8-10.8) K/ul RBC 5.01 (4.20-5.40) M/uL Hgb 13.2 (12.0-16.0) g/dl Hct 41.4 (37.0-47.0) % MCV 82.6 (80.0-100.0) fL MCH 26.3 (25.0-34.0) pg MCHC 31.9 L (32.0-36.0) g/dL RDW Std Deviation 43.0 (36.4-46.3) fL RDW Coeff of Stepan 14.5 (11.5-14.5) % Plt Count 187 (130-400) K/uL MPV 9.3 L (9.4-12.4) fL Immature Gran % (Auto) 0.2 % Neut % (Auto) 68.0 % Lymph % (Auto) 22.4 % Rosebud % (Auto) 6.6 % Eos % (Auto) 2.1 % Baso % (Auto) 0.7 % Neut # (Auto) 3.83 (1.40-6.50) K/uL Lymph # (Auto) 1.26 (1.20-3.40) K/uL Rosebud # (Auto) 0.37 (0.11-0.59) K/uL Eos # (Auto) 0.12 (0.00-0.50) K/uL Baso # (Auto) 0.04 (0.00-0.20) K/uL Immature Gran # (Auto) 0.01 (0.01-0.20) K/uL Sodium 140 (136-145) mmol/L Potassium 3.8 (3.5-5.1) mmol/L Chloride 103 (98-107) mmol/L Carbon Dioxide 29 (21-32) mmol/L Anion Gap 8 (3-11) BUN 10 (6-23) mg/dl Creatinine 0.72 (0.6-1.2) mg/dl Est Cr Clr Drug Dosing 75.6 ml/min eGFR 92.73 BUN/Creatinine Ratio 13.9 (10-20) Glucose 92 (70-99(Fasting)) mg/dl Calcium 9.6 (8.6-10.3) mg/dl Total Bilirubin 0.6 (0.2-1.0) mg/dl AST 16 (13-39) U/L ALT 11 (7-52) U/L Alkaline Phosphatase 62 (34-104) U/L Total Protein 7.6 (6.0-8.3) gm/dl Albumin 4.2 (3.4-5.0) gm/dl Globulin 3.4 (2.5-4.0) gm/dl Albumin/Globulin Ratio 1.2 (0.9-2) Lipase 58 (11-82) U/L Administered Medications Discontinued Medications Diphenhydramine HCl (Diphenhydramine 50 Mg/Ml Vial) 25 mg IV NOW STA Stop: 12/08/24 12:59 Last Admin: 12/08/24 13:06 Dose: 25 mg Documented By: BRIDGETTE Ioversol (Optiray 320 125ml) 120 ml IV ONCE ONE Stop: 12/08/24 14:09 Last Admin: 12/08/24 14:09 Dose: 120 ml Documented By: KATHARINE Metoclopramide HCl (Metoclopramide Hcl Inj 5 Mg/Ml 2 Ml Vial) 10 mg IV NOW STA Stop: 12/08/24 12:59 Last Admin: 12/08/24 13:06 Dose: 10 mg Documented By: BRIDGETTE Imaging Data Radiologist's Impression: Head CTA 12/08/24 12:58 CT angio head wo/w CLINICAL HISTORY: Right eye vision change. COMPARISON STUDY: Head CT September 21, 2024. TECHNIQUE: Unenhanced and arterial phase imaging of the head was performed. Intravenous injection of 120 cc Optiray 320 IV was uneventful. Sagittal and coronal reformats were viewed as well as maximal intensity projections on an independent 3-D workstation. A dose lowering technique was utilized adhering to the principles of ALARA. FINDINGS: No acute intracranial hemorrhage, midline shift or mass effect is present. Ventricular system is unremarkable. The basal cisterns are patent. There are no extra-axial collections. Mild white matter hypodense foci suggest small vessel disease. There are no findings to suggest acute dural sinus thrombosis or acute territorial infarct. The bilateral M1, M2, A1 and A2 segments are patent. No intracranial aneurysm. Atherosclerotic plaque results in moderate stenosis of the right cavernous carotid. There is persistence of the left posterior cerebral artery. There is severe stenosis of the proximal P2 segment of the left posterior cerebral artery. No intracranial vessel occlusion is identified. IMPRESSION: 1. No acute intracranial findings. 2. 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 persistence of the left posterior cerebral artery. 3. No large vessel occlusion. No intracranial aneurysm. ACT 112: Negative or not required by law. Electronically signed by: Damian Lozada M.D. 12/08/2024 2:28 PM Neck CTA 12/08/24 12:58 CT angio neck with con CLINICAL HISTORY: R eye vision change. TECHNIQUE: Following the IV administration of 120 of Optiray, CT angiogram of the neck was performed from the aortic arch to the skull base. Images are reviewed in the axial, sagittal, and coronal planes. 3-D MIPS images are created and assessed. IV contrast was administered without complication. All measurements were calculated based on NASCET criteria. A dose lowering technique was utilized adhering to the principles of ALARA. CT DOSE: 1136.58 mGy.cm COMPARISON STUDY: None FINDINGS: The vertebral arteries are diminutive beyond PICA, anatomic variant. There are mild calcifications at the carotid bulbs. No significant narrowing or occlusion seen at the common or internal carotid or vertebral arteries bilaterally. There are a few thyroid nodules measuring up to 1.3 cm on the right. There are mild degenerative changes at the cervical spine. IMPRESSION: 1. No significant arterial narrowing or occlusion seen at 0the neck. 2. Thyroid nodules. If these have not been previously evaluated, suggest follow- up thyroid ultrasound. ACT 112: Positive. There are findings on this exam that require communication between the performing entity and the patient following Patient Test Result Information Act ([place] Act 112) guidelines. The above report was generated using voice recognition software. It may contain grammatical, syntax or spelling errors. Electronically signed by: Mamadou Hamilton M.D. 12/08/2024 2:26 PM Discharge Plan Visit Data Chief Complaint: Head Pain Stated Complaint: HEADACHE, VISION ISSUES, DIZZY ED Provider: Ernestine Christianson Discharge Problem: 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, Vision abnormalities Patient Disposition: Admitted As Inpatient Condition: Fair Discharge Instructions Interventions: ED Discharge Assessment Last Done: 12/08/24 17:29 Forms Stand Alone Forms: [employer] Prescriptions Prescriptions: No Action (DME) pen needle, diabetic [Comfort EZ Pen Mcdonald] 33 gauge x 1/4" needle See Rx Instructions .Route Qty: 300 3RF Rx Instructions: As directed cyclobenzaprine 5 mg tablet 5 - 10 mg PO TID PRN (Reason: muscle spasms) Qty: 30 2RF Patient Comments: 12/08-last filled 07/10/24 duloxetine 60 mg capsule,delayed release(DR/EC) 60 mg PO DAILY Qty: 90 3RF meclizine 12.5 mg tablet 12.5 mg PO TID PRN (Reason: dizziness) Qty: 30 2RF Patient Comments: 12/08-last filled 07/10 10 day supply #30 lorazepam 0.5 mg tablet 0.5 mg PO HS PRN (Reason: Anxiety) Qty: 90 0RF Patient Comments: 12/08-last filled 07/10 30 day supply #30 rosuvastatin 10 mg tablet 10 mg PO DAILY Qty: 90 3RF albuterol sulfate 90 mcg/actuation HFA aerosol inhaler 1 inh INH 6XD PRN (Reason: shortness of breath or wheezing) Qty: 8 1RF lisinopril 10 mg tablet 10 mg PO DAILY Qty: 100 3RF metformin 500 mg tablet extended release 24 hr 500 mg PO DAILY Qty: 90 3RF Rx Instructions: Take with a meal. ropinirole 4 mg tablet 4 mg PO HS Qty: 90 3RF pregabalin 150 mg capsule 150 mg PO BID Qty: 180 1RF Patient Comments: 12/08- last filled 08/14 90 day supply #180 Mounjaro 7.5 mg/0.5 mL pen injector 7.5 mg subcut .COMPLEX Qty: 2 5RF Rx Instructions: 7.5 mg subcutaneously once weekly; acetaminophen [Arthritis Pain Reliever] 650 mg tablet extended release 650 mg PO Q12H PRN (Reason: Pain) Patient Comments: otc unable to verify Referrals Referrals: Ana Lozada MD [Primary Care Provider] -
[2024-12-08 13:42] LABS: Alanine Aminotransferase 11.0 U/L (7-52); Albumin Globulin Ratio 1.2 (0.9-2); Albumin Level 4.2 gm/dl (3.4-5.0); Alkaline Phosphatase 62.0 U/L (34-104); Anion Gap 8.0 (3-11); Bilirubin,Total 0.6 mg/dl (0.2-1.0); Blood Urea Nitrogen 10.0 mg/dl (6-23); Calcium 9.6 mg/dl (8.6-10.3); Carbon Dioxide 29.0 mmol/L (21-32); Chloride 103.0 mmol/L (98-107); Creatinine Clr Calc Pharmacy 75.6 ml/min; Globulin 3.4 gm/dl (2.5-4.0); Glucose 92.0 mg/dl (70-99(Fasting)); Lipase 58.0 U/L (11-82); Potassium 3.8 mmol/L (3.5-5.1); Sodium 140.0 mmol/L (136-145); Total Protein 7.6 gm/dl (6.0-8.3)
[2024-12-08] MEDS: OPTIRAY 320 125ml IV ONE (14:09)
--- NOTE | 2024-12-08 14:28 | CT Scan Report ---
CT angio neck with con CLINICAL HISTORY: R eye vision change. TECHNIQUE: Following the IV administration of 120 of Optiray, CT angiogram of the neck was performed from the aortic arch to the skull base. Images are reviewed in the axial, sagittal, and coronal plane s. 3-D MIPS images are created and assessed. IV contrast was administered without complication. All m easurements were calculated based on NASCET criteria. A dose lowering technique was utilized adherin g to the principles of ALARA. CT DOSE: 1136.58 mGy.cm COMPARISON STUDY: None FINDINGS: The vertebral arteries are diminutive beyond PICA, anatomic variant. There are mild calcifi cations at the carotid bulbs. No significant narrowing or occlusion seen at the common or internal ca rotid or vertebral arteries bilaterally. There are a few thyroid nodules measuring up to 1.3 cm on the right. There are mild degenerative taylor ges at the cervical spine. IMPRESSION: 1. No significant arterial narrowing or occlusion seen at 0the neck. 2. Thyroid nodules. If these have not been previously evaluated, suggest follow-up thyroid ultrasound . ACT 112: Positive. There are findings on this exam that require communication between the performing entity and the patient following Patient Test Result Information Act ([place] Act 112) guidelines. The above report was generated using voice recognition software. It may contain grammatical, syntax o r spelling errors. Electronically signed by: Mamadou Hamilton M.D. 12/08/2024 2:26 PM
--- NOTE | 2024-12-08 14:30 | CT Scan Report ---
CT angio head wo/w CLINICAL HISTORY: Right eye vision change. COMPARISON STUDY: Head CT September 21, 2024. TECHNIQUE: Unenhanced and arterial phase imaging of the head was performed. Intravenous injection of 120 cc Optiray 320 IV was uneventful. Sagittal and coronal reformats were viewed as well as maximal i ntensity projections on an independent 3-D workstation. A dose lowering technique was utilized adheri ng to the principles of ALARA. FINDINGS: No acute intracranial hemorrhage, midline shift or mass effect is present. Ventricular syst em is unremarkable. The basal cisterns are patent. There are no extra-axial collections. Mild white m atter hypodense foci suggest small vessel disease. There are no findings to suggest acute dural sinus thrombosis or acute territorial infarct. The bilateral M1, M2, A1 and A2 segments are patent. No int racranial aneurysm. Atherosclerotic plaque results in moderate stenosis of the right cavernous caroti d. There is persistence of the left posterior cerebral artery. There is severe stenosis of the proximal P2 segment of the left posterior cerebral artery. No intracranial vessel occlusion is identi fied. IMPRESSION: 1. No acute intracranial findings. 2. 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 persistenc e of the left posterior cerebral artery. 3. No large vessel occlusion. No intracranial aneurysm. ACT 112: Negative or not required by law. Electronically signed by: Damian Lozada M.D. 12/08/2024 2:28 PM
--- NOTE | 2024-12-08 16:59 | History & Physical Report ---
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: (2) Hypertension: (3) Type II diabetes mellitus with peripheral angiopathy: (4) Hyperlipidemia: Plan In summary this is a 64-year-old female who presents with waxing and waning right visual field auras and headache concerning for complex migraine versus TIA #Complex migraine with visual aura Given the patient's presenting symptomatology that wax and wane, the duration of the symptoms, and their lack of associated vascular territories there is a very low degree of suspicion that this is a vascular phenomenon rather more likely to be a complex migraine associated with visual aura; after further discussion with the patient at bedside and through shared decision making they elected for observation with MRI to be obtained; patient does have multiple risk factors for TIA/CVA including hypertension, hyperlipidemia, type 2 diabetes mellitus that is well-controlled, postmenopausal state however again their presenting symptoms, and their waxing and waning nature are not consistent with a vascular event. Continue home antihypertensive regimen Continue home rosuvastatin; pending morning fasting lipid panel to determine need for escalation to moderate to high intensity statin Pending MRI without contrast #Type II diabetes mellitus with peripheral angiopathy Patient does have a diagnosis of type 2 diabetes mellitus which is managed in the outpatient setting with metformin and Mounjaro; most recent hemoglobin A1c of 5.7%, indicating thoroughly well-controlled condition; at this time, there is no indication for intermittent insulin therapy, if the patient's stay is prolonged past anticipated discharge date of 12/09, we will initiate sliding scale insulin therapy History of Present Illness Chief Complaint: Intermittent visual aura with headache Primary Care Provider: Ana Lozada MD Ms. Eastman is a 64-year-old female whose active medical conditions include type 2 diabetes mellitus with peripheral angiopathy, hypertension, hyperlipidemia, fibr omyalgia among other chronic medical conditions who presented to the [facility] on 12/08 after recurrent episodes of vision changes, headache, and transient difficulty with speech. The patient describes, in the morning on 12/07 at approximately 0800 hrs. they began to experience what they described as a "colorful kaleidoscope" visual change in the right upper outer quadrant of the right visual field that was persistent; this aura did not change location when she would move her eye around. There were no negative/deficit vision changes. This is transient, lasting approximately 1 hour. It was not directly associated with, but closely followed by difficulty with saying words, specifically not being able to pronounce them, not an issue with articulation. This symptom also lasted for a brief period of time. The symptoms were associated with left-sided headache and facial discomfort, which was transient for approximately 2 to 3-hour period. The patient's symptoms of visual aura reoccurred on the morning of 12/08 at a similar time, associated with similar head pain but was not associated with any difficulty with speech. With this recurrence, the patient presented to the emergency department for further evaluation. At the time my assessment, the patient has no endorsed neurologic deficits no residual issues. She denies any headache, nausea, vomiting, visual deficits, visual asymmetry, diplopia, aphasia, dysarthria, dysphagia, dyne aphasia, paresthesias or kim numbness, asymmetric motor strength or loss of strength from prior. Allergies Allergy/AdvReac Type Severity Reaction Status Date / Time NSAIDS (Non-Steroidal Allergy Mild HOT, RASH, Verified 11/16/24 08:26 Anti-Inflamma swelling Home Medications Medication Instructions Recorded Confirmed Type acetaminophen 650 mg 650 mg PO Q12H PRN Pain 09/20/19 11/16/24 History tablet,extended release (Arthritis Pain Reliever) pen needle, diabetic 33 gauge x #300 ea 07/01/23 11/16/24 Rx 1/4" (Comfort EZ Pen [place]) cyclobenzaprine 5 mg tablet 5 - 10 mg (1 - 2 x 5 mg) PO TID 01/26/24 11/16/24 Rx PRN muscle spasms #30 tabs duloxetine 60 mg capsule,delayed 60 mg PO DAILY #90 caps 02/25/24 11/16/24 Rx release lorazepam 0.5 mg tablet 0.5 mg PO HS PRN Anxiety #90 tabs 04/25/24 11/16/24 Rx meclizine 12.5 mg tablet 12.5 mg PO TID PRN dizziness #30 04/25/24 11/16/24 Rx tabs albuterol sulfate 90 mcg/actuation 1 inh inhalation 6XD PRN shortness 06/21/24 11/16/24 Rx aerosol inhaler of breath or wheezing #8 grams rosuvastatin 10 mg tablet 10 mg PO DAILY #90 tabs 06/21/24 11/16/24 Rx lisinopril 10 mg tablet 10 mg PO DAILY #100 tabs 07/06/24 11/16/24 Rx metformin 500 mg tablet,extended 500 mg PO DAILY #90 tabs 08/08/24 11/16/24 Rx release 24 hr ropinirole 4 mg tablet 4 mg PO HS #90 tabs 08/08/24 11/16/24 Rx pregabalin 150 mg capsule 150 mg PO BID #180 caps 08/14/24 11/16/24 Rx tirzepatide 7.5 mg/0.5 mL 7.5 mg (0.5 mL) subcut .COMPLEX #2 09/25/24 11/16/24 Rx subcutaneous pen injector mL (Mounjaro) Past Med/Surg History Problem List (Updated 12/08/24 @ 17:10 by Oskar Wise DO) 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 Type II diabetes mellitus with peripheral angiopathy (Chronic) Lumbar radiculopathy Anxiety (Chronic) Hypertension (Chronic) Hyperlipidemia (Chronic) Cervical radiculopathy (Chronic) Osteoarthritis (Chronic) Fibromyalgia (Chronic) Medical History Trochanteric bursitis of right hip Surgical History S/P excision of lipoma Excision of Left Calf Lipoma, 3 cm, subcutaneous - Mamadou Seymour DO, FACS 01-15-2021 History of left oophorectomy History of bilateral tubal ligation History of cholecystectomy History of colonoscopy History of esophagogastroduodenoscopy (EGD) H/O wisdom tooth extraction Family History Mother History of anesthesia reaction difficulty waking Family history of diabetes mellitus Myocardial infarction Kidney disease Cardiac disorder Brother Family hx colonic polyps Unknown Cardiac disorder Hypertension Denies family history of Ovarian cancer Prostate cancer Breast cancer Colorectal cancer Social History (Updated 12/08/24 @ 17:05 by Oskar Wise DO) Smoking Status: Never smoker Second Hand Exposure: No; Do You Dip or Chew Tobacco: No; Hx Alcohol Use: Yes Alcohol type: beer, wine and hard liquor Hx Substance Use: No Preferred Language: Azeri Communication Ability: Effective 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: No Beliefs That Will Affect Care: None marital status: Current Living Situation: Alone and Family current occupational status: disabled How many Children do You have: 2 How many Children do You have Comment: Does not speak with either child Feels Safe at Home: Yes Childhood Exposure to Second-Hand Smoke: Yes Diet: regular caffeine: Yes during the past year weight has: remained stable Dental Care, Regularly: No Physical Activity Frequency: Daily Seatbelt Use: always Sunscreen Use: No Assistive Devices: Glasses Review of Systems Review of Systems: Review of constitutional, cardiovascular, pulmonary, neurologic systems was unremarkable other than pertinent positive and negative findings detailed above Physical Exam Physical Exam: General: Adult female in no acute distress Vital Signs: Reviewed, persistently hypertensive HEENT: Pupils equally round and reactive to light; extraocular motion intact; moist mucous membranes Pulmonary: Symmetric chest wall excursion without restriction Cardiovascular: Regular rate and rhythm with grade 1/6 systolic murmur best heard in the right second intercostal space parasternally; right radial pulse 2+ with brisk capillary refill; no notable lower extremity edema Neurologic: Cranial nerves II through XII intact; no discernible focal weakness or paresthesias of the face, upper extremities, lower extremities; speech is of normal cuco, unrestricted vocabulary, with clear articulation Results & Data Results & Data Vital Signs (Past 12 Hours) Vital Signs Temp Pulse Resp BP Pulse Ox O2 Del Method 12/08/24 16:27 68 12/08/24 15:42 112 H 16 136/89 96 12/08/24 15:00 89 18 98 12/08/24 13:54 62 20 154/82 H 95 12/08/24 12:23 67 12/08/24 11:47 36.6 C 84 20 151/99 H 100 Room Air Laboratory Results CBC and CMP are unremarkable Most recent hemoglobin A1c of 5.4% in 10/2024 Diagnostic Findings CTA head and neck were obtained in the emergency department remarkable for "severe stenosis" of the proximal P2 segment of the left posterior cerebral artery; persistence of the left posterior cerebral artery; mild calcification of the carotid bulbs with moderate stenosis secondary to atherosclerotic plaque formation in the right cavernous carotid Code Status & VTE Plan Code Status DNR/DNI VTE Prophylaxis Plan VTE Prophylaxis will be ordered: Yes PG Care Time/CCT Total # of Minutes Spent Total Time Spent with Patient: Total time spent is greater than 50% in coordination of care (as documented) at patient's floor/unit and/or counseling patient: Coding Level of Care Code 64887 INT INP/OBS CARE Diagnoses 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 G43.109 Primary hypertension I10 Hypertension type: primary hypertension Type II diabetes mellitus with peripheral angiopathy E11.51 Mixed hyperlipidemia E78.2 Hyperlipidemia type: mixed hyperlipidemia (2) Hypertension Hypertension type: primary hypertension Qualified Code(s): I10 - Essential (primary) hypertension (4) Hyperlipidemia Hyperlipidemia type: mixed hyperlipidemia Qualified Code(s): E78.2 - Mixed hyperlipidemia
--- NOTE | 2024-12-08 19:07 | Magnetic Resonance Report ---
MRI of the brain performed without IV contrast History: Comparison: Technique: Sagittal T1-weighted and axial T2-weighted, T2/FLAIR and diffusion-weighted with ADC map images of the brain were obtained without IV contrast. Findings: No evidence for intracranial mass lesion, mass-effect, midline shift, or abnormal extra-axial fluid collection. The ventricles and sulci are within normal limits for age. Mild chronic small vessel ischemic changes in the white matter. No abnormally reduced diffusion or evidence for acute infarct. Normal intravascular flow voids. Impression: Normal brain MRI Electronically signed by Angelito Garrett 12-08-2024 7:07 PM
[2024-12-08] MEDS: ENOXAPARIN INJ 40 MG/0.4 ML SYR SQ SCH (20:55)
[2024-12-09] MEDS ORDERED: INFLUENZA VACC TS2025-26(65y+)/PF (IIV3) 0.5mL Syr IM ONE (00:11)
[2024-12-09] MEDS ORDERED: PNEUMOCOCCAL VACCINE (PCV20) 20-VAL CONJ-DIP CRM/PF 0.5 ML SYR IM ONE (00:11)
[2024-12-09 07:24] LABS: Cholesterol 133.0 mg/dl (0-200); HDL Cholesterol 38.0 mg/dl; Triglycerides 131.0 mg/dl (0-150)
[2024-12-09] MEDS: ROSUVASTATIN CALCIUM 10 MG TAB PO SCH (07:27)
[2024-12-09 07:29] VITALS: BP 131/78
[2024-12-09 08:40] VITALS: PULSE 75; RESP 18; TEMP 97.9; O2SAT 98
--- NOTE | 2024-12-09 12:43 | Discharge Summary ---
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: (2) Hypertension: (3) Type II diabetes mellitus with peripheral angiopathy: (4) Hyperlipidemia: Plan In summary this is a 64-year-old female who presents with waxing and waning right visual field auras and headache concerning for complex migraine versus TIA #Complex migraine with visual aura Given the patient's presenting symptomatology that wax and wane, the duration of the symptoms, and their lack of associated vascular territories there is a very low degree of suspicion that this is a vascular phenomenon rather more likely to be a complex migraine associated with visual aura; after further discussion with the patient at bedside and through shared decision making they elected for observation with MRI to be obtained; patient does have multiple risk factors for TIA/CVA including hypertension, hyperlipidemia, type 2 diabetes mellitus that is well-controlled, postmenopausal state however again their presenting symptoms, and their waxing and waning nature are not consistent with a vascular event; MRI brain without contrast on 12/09 did not reveal ischemic pathology Continue home antihypertensive regimen - Discharged with Sumatriptan with recommendation to follow with Neurology for continued care Admission HPI Per Admitting Provider Ms. Eastman is a 64-year-old female whose active medical conditions include type 2 diabetes mellitus with peripheral angiopathy, hypertension, hyperlipidemia, fibromyalgia among other chronic medical conditions who presented to the [facility] on 12/08 after recurrent episodes of vision changes, headache, and transient difficulty with speech. The patient describes, in the morning on 12/07 at approximately 0800 hrs. they began to experience what they described as a "colorful kaleidoscope" visual change in the right upper outer quadrant of the right visual field that was persistent; this aura did not change location when she would move her eye around. There were no negative/deficit vision changes. This is transient, lasting approximately 1 hour. It was not directly associated with, but closely followed by difficulty with saying words, specifically not being able to pronounce them, not an issue with articulation. This symptom also lasted for a brief period of time. The symptoms were associated with left-sided headache and facial discomfort, which was transient for approximately 2 to 3-hour period. The patient's symptoms of visual aura reoccurred on the morning of 12/08 at a similar time, associated with similar head pain but was not associated with any difficulty with speech. With this recurrence, the patient presented to the emergency department for further evaluation. At the time my assessment, the patient has no endorsed neurologic deficits no residual issues. She denies any headache, nausea, vomiting, visual deficits, visual asymmetry, diplopia, aphasia, dysarthria, dysphagia, dyne aphasia, paresthesias or kim numbness, asymmetric motor strength or loss of strength from prior. Discharge Exam General: Adult female in no acute distress Vital Signs: Reviewed, persistently hypertensive HEENT: Pupils equally round and reactive to light; extraocular motion intact; moist mucous membranes Pulmonary: Symmetric chest wall excursion without restriction Cardiovascular: Regular rate and rhythm with grade 1/6 systolic murmur best heard in the right second intercostal space parasternally; right radial pulse 2+ with brisk capillary refill; no notable lower extremity edema Neurologic: Cranial nerves II through XII intact; no discernible focal weakness or paresthesias of the face, upper extremities, lower extremities; speech is of normal cuco, unrestricted vocabulary, with clear articulation Discharge Plan Discharge Items Patient Disposition: Home - Self-Care Reason For Visit: COMPLEX MIGRAINE Discharge Diagnosis: Complex migraine with visual aura Condition on Discharge: Good Activity: Per Instructions section Non-emergency contact: Primary Care Provider and Neurologist Call non-emergency contact if: you have any medication questions and your symptoms worsen Follow-up/Referrals: Geovanni Garcia MD [Physician] - (Complex migraine, establish care for management) Ana Lozada MD [Primary Care Provider] - Diet: Carb Consistent or DM2 Fluids: 2000ml (8 cups) Addtl Attending Provider Instructions: You were admitted to the [facility] for observation after transient episodes of visual changes, headache, and speech changes to rule out an intracranial vascular event; ultimately diagnosed with a complex migraine with aura. As discussed at the time of your admission, your symptoms leading to presentation are not typical of a vascular event such as a stroke, but after shared decision making we determined observation in the hospital overnight and obtaining an MRI brain without contrast would be reasonable. Your MRI did not reveal any acute ischemic changes or lesions that would require further medical management. With this information, your symptoms are most likely consequential of a complex migraine. We recommend close follow up with your PCP and referral to a Neurologist for continued care, which has been provided in your discharge orders. Additionally, we recommend starting a new medication Sumatriptan, which you can take as an abortive medication for when symptoms similar to what you experienced leading up to your hospitalization for relief. If this medication does not relieve your symptoms, or you have persistent and progressive neurologic deficits concerning for an acute ischemic event such as a TIA or CVA, then we recommend returning to the emergency department for evaluation. Thank you for choosing [facility] as your healthcare provider Pending Studies at Discharge: No Stand-Alone Forms: My [facility] Medications and DC Order Prescriptions: New sumatriptan 20 mg/actuation spray,non-aerosol 20 mg intranasal Q2H MDD 2 doses PRN (Reason: migraine headache) 30 Days Qty: 6 0RF Continued (DME) pen needle, diabetic [Comfort EZ Pen [place] [employer]] 33 gauge x 1/4" needle See Rx Instructions .Route Qty: 300 3RF Rx Instructions: As directed cyclobenzaprine 5 mg tablet 5 - 10 mg PO TID PRN (Reason: muscle spasms) Qty: 30 2RF Patient Comments: 12/08-last filled 07/10/24 duloxetine 60 mg capsule,delayed release(DR/EC) 60 mg PO DAILY Qty: 90 3RF meclizine 12.5 mg tablet 12.5 mg PO TID PRN (Reason: dizziness) Qty: 30 2RF Patient Comments: 12/08-last filled 07/10 10 day supply #30 lorazepam 0.5 mg tablet 0.5 mg PO HS PRN (Reason: Anxiety) Qty: 90 0RF Patient Comments: 12/08-last filled 07/10 30 day supply #30 rosuvastatin 10 mg tablet 10 mg PO DAILY Qty: 90 3RF albuterol sulfate 90 mcg/actuation HFA aerosol inhaler 1 inh INH 6XD PRN (Reason: shortness of breath or wheezing) Qty: 8 1RF lisinopril 10 mg tablet 10 mg PO DAILY Qty: 100 3RF metformin 500 mg tablet extended release 24 hr 500 mg PO DAILY Qty: 90 3RF Rx Instructions: Take with a meal. ropinirole 4 mg tablet 4 mg PO HS Qty: 90 3RF pregabalin 150 mg capsule 150 mg PO BID Qty: 180 1RF Patient Comments: 12/08- last filled 6/16 90 day supply #180 Mounjaro 7.5 mg/0.5 mL pen injector 7.5 mg subcut .COMPLEX Qty: 2 5RF Rx Instructions: 7.5 mg subcutaneously once weekly; acetaminophen [Arthritis Pain Reliever] 650 mg tablet extended release 650 mg PO Q12H PRN (Reason: Pain) Patient Comments: otc unable to verify Discharge Orders: Discharge Order (Routine); Ordered 12/09/24 Ordered By: Oskar Wise Admission Data Admit Date/Time: 12/08/24 16:53 Attending Provider: Oskar Wise Admit Provider: Oskar Wise Primary Care Provider: Ana Lozada Other Interventions: Discharge Summary Assessment (RN) Last Done: 12/09/24 09:01 Hospital Stay Data Diagnostic Imagining Performed 12/08/24 12:58 CTA head wo/w [CT angio head wo/w] Stat CTA neck with con [CT angio neck with con] Stat 12/08/24 16:53 MRI Brain [MR brain wo con] Routine Pending Results Patient Have Any Pending Studies at Discharge: No Discharge Instructions Given to Patient (Per Discharging Provider) You were admitted to the [facility] for observation after transient episodes of visual changes, headache, and speech changes to rule out an intracranial vascular event; ultimately diagnosed with a complex migraine with aura. As discussed at the time of your admission, your symptoms leading to presentation are not typical of a vascular event such as a stroke, but after sh ared decision making we determined observation in the hospital overnight and obtaining an MRI brain without contrast would be reasonable. Your MRI did not reveal any acute ischemic changes or lesions that would require further medical management. With this information, your symptoms are most likely consequential of a complex migraine. We recommend close follow up with your PCP and referral to a Neurologist for continued care, which has been provided in your discharge orders. Additionally, we recommend starting a new medication Sumatriptan, which you can take as an abortive medication for when symptoms similar to what you experienced leading up to your hospitalization for relief. If this medication does not relieve your symptoms, or you have persistent and progressive neurologic deficits concerning for an acute ischemic event such as a TIA or CVA, then we recommend returning to the emergency department for evaluation. 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
== END 2024-12-09 09:27 | disposition home or self-care (01) ==
LOC: 3N 11:44 → ED 11:44 → 3N 17:29